=== PATIENT | female | born 1960 | race Caucasian/White ===

== ENCOUNTER → 2019-03-10 12:48 | Outpatient (CLI) | payer MEDICARE | END | disposition home or self-care (01) | LOC: D.MRI 12:48 | PROVIDERS: ATTEND Orthopaedic Surgery | DX: S83.211A Bucket-handle tear of medial meniscus, current injury, right knee, initial encounter (principal) ==

== ENCOUNTER 2019-07-09 08:00 | Outpatient (CLI) | payer MEDICARE, MEDICAID ==
[2019-07-09] MEDS ORDERED: METHOCARBAMOL750 MG NG (08:45)
[2019-07-09 09:28] LABS: APTT 31.4 SECONDS (22.8-39.4); INR 1.01 (0.85-1.17); PROTIME 12.8 SECONDS (11.6-15.0)
[2019-07-09 09:52] LABS: HEMATOCRIT 43.9 % (36.0-48.0); HEMOGLOBIN 14.9 g/dL (12-16); LYMPHOCYTES 28.8 % (15-50); MCH 30.5 pg (26.0-34.0); MCHC 33.9 g/dL (31.0-37.0); MCV 89.8 fL (80.0-100.0); MEAN PLATELET VOLUME 9.1 fL (7.4-10.4); NEUTROPHILS 63.5 % (40-80); PLATELET COUNT 294 10x3/uL (130-400); RBC 4.89 10x6/uL (4.00-5.40); RDW 12.8 % (11.5-14.5); WBC 5.2 10x3/uL (4.8-10.8)
== END 2019-07-09 08:01 | disposition home or self-care (01) ==
LOC: D.OPS 08:00 → D.PAN 07-10 09:30 → EDSTATUS 07-10 09:30 → D.OPS 07-10 09:30
PROVIDERS: Anesthesiology; ATTEND Orthopaedic Surgery
DX: M23.91 Unspecified internal derangement of right knee (principal); M25.661 Stiffness of right knee, not elsewhere classified

== ENCOUNTER → 2020-04-16 12:56 | Outpatient (CLI) | payer MEDICARE, MEDICAID ==
[~2020-04-16 12:56] MED LIST: METHOCARBAMOL750 MG NG
== END | disposition home or self-care (01) ==
LOC: D.US 12:56
PROVIDERS: ATTEND Clinical Nurse Specialist Family Health
DX: M79.661 Pain in right lower leg (principal)